=== PATIENT | male | born 1980 | race Caucasian/White ===

== ENCOUNTER 2018-03-21 11:40 | Inpatient (IN) | payer OTHER ==
[2018-03-21 13:04] VITALS: BMI 21.1
--- NOTE | 2018-03-21 18:04 | HP ---
CIWA Score - CIWA Score Nausea/Vomitin Muscle Tremors: 2 Anxiety: 3 Agitation: 4-Moderately Restless Paroxysmal Sweats: 3 Orientation: 1-Uncertain about Date Tacttile Disturbances: 1-Very Mild Itch/Numbness Auditory Disturbances: 0-None Visual Disturbances: 0-None Headache: 1-Very Mild CIWA-Ar Total Score: 17 Admission ROS BHS - HPI Chief Complaint: withdrawal symptoms Allergies/Adverse Reactions: Allergies Allergy/AdvReac Type Severity Reaction Status Date / Time No Known Allergies Allergy Verified 03/21/18 14:33 History of Present Illness: 37 yo male with hx nicotine, xanax, alcohol, cocaine dependence is here seeking detox for the first time. Reports hx of insomnia, denies any other medical problems. Last detox 8 months ago at [facility]. Denie suicidal / homicidal ideation. MMTP at [facility], methadone 100mg, last medicated today. Exam Limitations: No Limitations - Ebola screening Have you traveled outside of the country in the last 21 days: No Have you had contact with anyone from an Ebola affected area: No Have you been sick,other than usual withdrawal symptoms: No Do you have a fever: No - Review of Systems Constitutional: Chills, Changes in sleep, Unintentional Wgt. Loss (40 lbs) Respiratory: reports: No Symptoms reported Cardiac: reports: No Symptoms Reported GI: reports: Constipated, Nausea, Poor Appetite, Vomiting, Abdominal cramping : reports: No Symptoms Reported Musculoskeletal: reports: No Symptoms Reported Integumentary: reports: No Symptoms Reported Neuro: reports: Headache, Numbness (hands) Endocrine: reports: Increased Thirst Hematology: reports: No Symptoms Reported Psychiatric: reports: Orientated x3, Agitated Other Systems: Reviewed and Negative Patient History - Patient Medical History Hx Anemia: No Hx Asthma: No Hx Chronic Obstructive Pulmonary Disease (COPD): No Hx Cancer: No Hx Cardiac Disorders: No Hx Congestive Heart Failure: No Hx Hypertension: No Hx Hypercholesterolemia: No Hx Pacemaker: No HX Cerebrovascular Accident: No Hx Seizures: Yes Hx Dementia: No Hx Diabetes: No Hx Gastrointestinal Disorders: No Hx Liver Disease: No Hx Genitourinary Disorders: No Hx Sexually Transmitted Disorders: No Hx Renal Disease (ESRD): No Hx Thyroid Disease: No Hx Human Immunodeficiency Virus (HIV): No (last tested one year ) Hx Hepatitis C: No Hx Depression: Yes Hx Suicide Attempt: No Hx Bipolar Disorder: No Hx Schizophrenia: No - Patient Surgical History Past Surgical History: No Hx Neurologic Surgery: No Hx Cataract Extraction: No Hx Cardiac Surgery: No Hx Lung Surgery: No Hx Breast Surgery: No Hx Breast Biopsy: No Hx Abdominal Surgery: No Hx Appendectomy: No Hx Cholecystectomy: No Hx Genitourinary Surgery: No Hx Section: No Hx Orthopedic Surgery: No - PPD History Previous Implant?: No Implanted On Prior [facility] Admission?: No PPD to be Administered?: Yes - Smoking Cessation Smoking history: Current every day smoker Aproximately how many cigarettes per day: 20 Hx Chewing Tobacco Use: No Initiated information on smoking cessation: Yes 'Breaking Loose' booklet given: 03/21/18 - Substance & Tx. History Hx Alcohol Use: Yes Substance Use Type: Alcohol, Cocaine, Heroin, Opiates, Tranquilizers Hx Substance Use Treatment: Yes ([facility] 8 months ) - Substances Abused Alcohol Route: Oral Frequency: Daily Amount used: 1 pint of vodka, whisky 375 ml Age of first use: 15 Date of Last Use: 03/20/18 Cocaine Route: Injection Frequency: Daily Amount used: $50 Age of first use: 30 Date of Last Use: 03/20/18 xanax Route: Oral Frequency: Daily Amount used: 5 pills Age of first use: 32 Date of Last Use: 03/20/18 Family Disease History - Family Disease History Family History: Unable to Obtain Admission Physical Exam BHS - Vital Signs Vital Signs: Vital Signs - 24 hr 03/21/18 12:54 Temperature 97 F L Pulse Rate 67 Respiratory 20 Rate Blood Pressure 121/71 - Physical General Appearance: Yes: Appropriately Dressed, Mild Distress, Irritable, Sweating, Other (restless) HEENTM: Yes: EOMI, Hearing grossly Normal, Normal ENT Inspection, Normocephalic , Normal Voice, MERARI, Pharynx Normal, Tm's normal, Other (chelithis) Respiratory: Yes: Chest Non-Tender, Lungs Clear, Normal Breath Sounds, No Respiratory Distress, No Accessory Muscle Use Neck: Yes: Within Normal Limits Breast: Yes: Breast Exam Deferred Cardiology: Yes: Regular Rhythm, Regular Rate Abdominal: Yes: Normal Bowel Sounds, Non Tender, Flat, Soft Genitourinary: Yes: Within Normal Limits Back: Yes: Normal Inspection Musculoskeletal: Yes: full range of Motion, Gait Steady, Pelvis Stable Extremities: Yes: Normal Capillary Refill, Normal Inspection, Normal Range of Motion, Non-Tender Neurological: Yes: documentation analyst II-XII NML intact, Fully Oriented, Alert, Motor Strength 5/5, Depressed Affect Integumentary: Yes: Normal Color, Warm, Diaphoresis Lymphatic: Yes: Within Normal Limits - Diagnostic (1) Marijuana dependence Current Visit: Yes Status: Acute (2) Sedative, hypnotic or anxiolytic dependence with withdrawal, unspecified Current Visit: Yes Status: Acute (3) Alcohol dependence with uncomplicated withdrawal Current Visit: Yes Status: Acute (4) Cocaine dependence Current Visit: Yes Status: Acute (5) Opioid dependence on agonist therapy Current Visit: Yes Status: Acute Comment: on methadone 100 m at [facility], dose pending verification (6) Anxious mood Current Visit: Yes Status: Acute Cleared for Admission S - Detox or Rehab [facility] Level of Care: Medically Managed Detox Regimen/Protocol: Librium S Breath Alcohol Content Breath Alcohol Content: 0 Urine Drug Screen - Results Drug Screen Negative: No Urine Drug Screen Results: THC-Marijuana, LEO-Cocaine, OPI-Opiates, BZO- Benzodiazepines, MTD-Methadone
[2018-03-21] MEDS ORDERED: IBUPROFEN 400 MG TABLET (FP) PO PRN (18:09)
[2018-03-21] MEDS ORDERED: LOPERAMIDE HCL 2 MG CAPSULE PO PRN (18:09)
[2018-03-21] MEDS ORDERED: hydrOXYzine PAMOATE 50 MG CAPSULE (FP) PO PRN (18:09)
[2018-03-21] MEDS ORDERED: MENTHOL/PHENOL 1 EACH UD MM PRN (18:09)
[2018-03-21] MEDS ORDERED: ACETAMINOPHEN 325 MG TABLET (FP) PO PRN (18:09)
[2018-03-21] MEDS ORDERED: MAGNESIUM HYDROX 2400MG/30ML ORAL SUSPENSION 30 ML CUP PO PRN (18:09)
[2018-03-21] MEDS ORDERED: MAG HYDROX/AL HYDROX/SIMETH 30 ML UNIT-DOSE CUP PO PRN (18:09)
[2018-03-21] MEDS ORDERED: chlordiazePOXIDE HCL 25 MG CAPSULE PO PRN (18:09)
[2018-03-21] MEDS ORDERED: guaiFENesin/D-METHORPHAN HB 10 ML UNIT-DOSE CUPS PO PRN (18:09)
[2018-03-21] MEDS ORDERED: P-EPHED 60MG/TRIPROLIDI 2.5MG TABLET PO PRN (18:09)
[2018-03-21] MEDS ORDERED: MAGNESIUM CITRATE 300 ML BOTTLE PO PRN (18:09)
[2018-03-21] MEDS ORDERED: chlordiazePOXIDE HCL 25 MG CAPSULE PO ONE (18:30)
[2018-03-21] MEDS ORDERED: MELATONIN 5 MG TABLETS PO PRN (22:00)
[2018-03-21] MEDS: chlordiazePOXIDE HCL 25 MG CAPSULE PO SCH (22:11)
[2018-03-21] MEDS: THIAMINE HCL 100 MG TABLET (FP) PO SCH (22:11)
[2018-03-21] MEDS: NICOTINE POLACRILEX 2 MG GUM BC PRN (22:32)
[2018-03-22] MEDS: chlordiazePOXIDE HCL 25 MG CAPSULE PO SCH ×4 (07:27→22:11)
[2018-03-22] MEDS ORDERED: METHADONE HCL 10 MG TABLET PO ONE (09:12)
[2018-03-22] MEDS ORDERED: METHADONE 80 MG, METHADONE 20 MG PO ONE (09:45)
[2018-03-22] MEDS ORDERED: METHADONE HCL 40 MG DISPERSABLE TABLET ONE (09:47)
[2018-03-22] MEDS ORDERED: METHADONE HCL 10 MG TABLET ONE (09:47)
[2018-03-22 10:03] LABS: HEMATOCRIT 34.8 % (35.4-49); HEMOGLOBIN 11.7 GM/dL (11.7-16.9); MCH 29.2 pg (25.7-33.7); MCHC 33.7 g/dl (32.0-35.9); MEAN CELL VOLUME 86.7 fl (80-96); MEAN PLT VOLUME 10.1 fl (7.5-11.1); PLATELET COUNT 160 K/MM3 (134-434); RBC 4.02 M/mm3 (4.00-5.60); RDW 13.8 % (11.9-15.9); WHITE BLOOD COUNT 6.9 K/mm3 (4.0-10.0)
[2018-03-22 10:25] LABS: CHLORIDE 110 mmol/L (98-107); POTASSIUM 3.9 mmol/L (3.5-5.1); SODIUM 146 mmol/L (136-145)
[2018-03-22] MEDS: NICOTINE 21 MG/24 HOURS TOPICAL PATCH TD SCH (10:41)
[2018-03-22] MEDS: PRENATAL VITAMINS W/ FOLIC ACID TABLET (FP) PO SCH (10:41)
[2018-03-22 10:52] LABS: ALBUMIN 3.2 g/dl (3.4-5.0); ALK PHOS 60 U/L (45-117); ANION GAP 6 (8-16); BILIRUBIN,TOTAL 0.1 mg/dL (0.2-1.0); BLOOD UREA NITROGEN 13 mg/dL (7-18); CALCIUM 8.4 mg/dL (8.5-10.1); CO2 30 mmol/L (21-32); GLUCOSE,RANDOM 98 mg/dL (74-106); SGOT/AST 17 U/L (15-37); SGPT/ALT 24 U/L (12-78); TOT PROT 5.6 g/dl (6.4-8.2)
--- NOTE | 2018-03-22 11:23 | PN ---
S CIWA - CIWA Score Nausea/Vomitin-No Nausea/No Vomiting Muscle Tremors: 4-Moderate,w/Arms Extend Anxiety: 4-Mod. Anxious/Guarded Agitation: 4-Moderately Restless Paroxysmal Sweats: 1-Minimal Palms Moist Orientation: 0-Oriented Tacttile Disturbances: 0-None Auditory Disturbances: 0-None Visual Disturbances: 0-None Headache: 0-None Present CIWA-Ar Total Score: 13 BHS Progress Note (SOAP) Subjective: ANXIETY,SLIGHT TREMORS,DIARRHEA. Objective: 03/22/18 11:22 Vital Signs 03/22/18 03/22/18 03/22/18 03:30 07:39 09:39 Temperature 98.1 F 97.5 F L Pulse Rate 61 58 L Respiratory 18 19 18 Rate Blood Pressure 88/52 92/58 Laboratory Tests 03/22/18 03/22/18 07:30 07:30 WBC 6.9 RBC 4.02 Hgb 11.7 Hct 34.8 L MCV 86.7 MCH 29.2 MCHC 33.7 RDW 13.8 Plt Count 160 MPV 10.1 Sodium 146 H Potassium 3.9 Chloride 110 H Carbon Dioxide 30 Anion Gap 6 L BUN 13 Creatinine 1.0 Creat Clearance w eGFR > 60 Random Glucose 98 Calcium 8.4 L Total Bilirubin 0.1 L AST 17 ALT 24 Alkaline Phosphatase 60 Total Protein 5.6 L Albumin 3.2 L Assessment: 03/22/18 11:22 WITHDRAWAL SX Plan: CONTINUE DETOX INCREASE PO FLUIDS.
--- NOTE | 2018-03-22 16:33 | CONSULT ---
[facility] Psychiatric Consult - Data Date of interview: 03/22/18 Admission source: [facility] Identifying data: First admission to [facility] for this 37 y/o [place]-born male seeking detox treatment on for alcohol,cocaine,xanax and heroin dependence.Patient is single without chidren and domiciled.Mr Mccullough declines to provide additional demographic information. Substance Abuse History: Confirmed by patent in this interview.Smoking history: Current every day smoker. Aproximately how many cigarettes per day: 20. Hx Chewing Tobacco Use: No. Initiated information on smoking cessation: Yes. ' Breaking Loose' booklet given: 03/21/18. - Substance & Tx. History. Hx Alcohol Use: Yes. Substance Use Type: Alcohol, Cocaine, Heroin, Opiates, Tranquilizers. Hx Substance Use Treatment: Yes ([facility] 8 months ). - Substances Abused. Alcohol. Route: Oral. Frequency: Daily. Amount used: 1 pint of vodka, whisky 375 ml. Age of first use: 15. Date of Last Use: 03/20/18. Cocaine. Route: Injection. Frequency: Daily. Amount used: $50. Age of first use: 30. Date of Last Use: 03/20/18. xanax. Route: Oral. Frequency: Daily. Amount used: 5 pills. Age of first use: 32. Date of Last Use: 03/20/18 Medical History: Noted history of withdrawal-related seizures. Psychiatric History: Patient denies history of psychiatric hospitalizations or suicide attempts.Mr Mccullough is currently on methadone maintenance (100 mg/day ) at the [facility] MMTP program in [facility]. Physical/Sexual Abuse/Trauma History: No information. Additional Comment: Urine Drug Screen Results: THC-Marijuana, LEO-Cocaine, OPI- Opiates, BZO-Benzodiazepines, MTD-Methadone.Noted. Mental Status Exam - Mental Status Exam Alert and Oriented to: Time, Place, Person Cognitive Function: Good Patient Appearance: Well Groomed Mood: Hostile, Nervous, Withdrawn, Irritable Affect: Normal Range Patient Behavior: Fatigued, Uncooperative Speech Pattern: Clear (limited maori proficiency) Voice Loudness: Normal Thought Process: Goal Oriented Thought Disorder: Not Present Hallucinations: Denies Suicidal Ideation: Denies Homicidal Ideation: Denies Insight/Judgement: Poor Sleep: Well Appetite: Good Gait/Station: Normal Psychiatric Findings - Problem List (Rosie 1, 2,3) (1) Alcohol dependence with uncomplicated withdrawal Current Visit: Yes Status: Acute (2) Opioid dependence on agonist therapy Current Visit: Yes Status: Chronic Comment: on methadone 100 m at [facility], dose pending verification (3) Sedative, hypnotic or anxiolytic dependence with withdrawal, unspecified Current Visit: Yes Status: Acute (4) Cocaine dependence Current Visit: Yes Status: Acute Qualifiers: Substance use status: uncomplicated Qualified Code(s): F14.20 - Cocaine dependence, uncomplicated (5) Marijuana dependence Current Visit: Yes Status: Acute (6) Substance induced mood disorder Current Visit: Yes Status: Suspected - Initial Treatment Plan Initial Treatment Plan: Psychoeducation.Detoxification.Observation.
[2018-03-22 17:11] LABS: URINE APPEARANCE CLEAR; URINE BILIRUBIN NEGATIVE (<2.0 mg/dL); URINE BLOOD NEGATIVE (NEGATIVE); URINE COLOR LTYELLOW; URINE GLUCOSE (UA) NEGATIVE (NEGATIVE); URINE KETONE NEGATIVE (NEGATIVE); URINE LEUK ESTERASE NEGATIVE (NEGATIVE); URINE NITRITE NEGATIVE (NEGATIVE); URINE PROTEIN NEGATIVE (NEGATIVE); URINE UROBILINOGEN NEGATIVE mg/dL (0.2-1.0)
[2018-03-22] MEDS: THIAMINE HCL 100 MG TABLET (FP) PO SCH (22:11)
[2018-03-23] MEDS ORDERED: METHADONE HCL 40 MG DISPERSABLE TABLET ONE (04:12)
[2018-03-23] MEDS ORDERED: METHADONE HCL 10 MG TABLET ONE (04:12)
[2018-03-23] MEDS ORDERED: METHADONE HCL 10 MG TABLET PO SCH (06:00)
[2018-03-23] MEDS: chlordiazePOXIDE HCL 25 MG CAPSULE PO SCH ×3 (06:11→17:18)
[2018-03-23] MEDS: METHADONE 80 MG, METHADONE 20 MG PO SCH (06:11)
[2018-03-23] MEDS: PRENATAL VITAMINS W/ FOLIC ACID TABLET (FP) PO SCH (10:44)
[2018-03-23] MEDS: NICOTINE 21 MG/24 HOURS TOPICAL PATCH TD SCH (10:45)
--- NOTE | 2018-03-23 13:48 | PN ---
Psychiatric Progress Note Vital Signs: Vital Signs Period Temp Pulse Resp BP Sys/Pedersen Pulse Ox Last 24 Hr 96.8 F-98.9 F 61-73 16-18 105-113/59-74 Date of Session: 03/23/18 Chief Complaint:: " I cannot sleep at night." HPI: Uneventful hospitalization.Ongoing detoxification for alcohol,cocaine, xanax and heroin dependence.Reconsult is sought to address complaint of insomnia. ROS: Unremarkable. Current Medications: Active Medications Generic Name Dose Route Start Last Admin Trade Name Freq PRN Reason Stop Dose Admin Acetaminophen 650 mg 03/21/18 18:09 Tylenol - PO Q4H PRN FEVER Al Hydroxide/Mg Hydroxide 30 ml 03/21/18 18:09 Mylanta Oral Suspension - PO Q6H PRN DYSPEPSIA Chlordiazepoxide HCl 25 mg 03/22/18 23:00 03/23/18 10:45 Librium - PO 03/23/18 17:01 25 mg [id number] DI Administration Chlordiazepoxide HCl 15 mg 03/23/18 23:00 Librium - PO 03/24/18 17:01 [id number] DI Chlordiazepoxide HCl 25 mg 03/21/18 18:09 Librium - PO 03/24/18 18:08 Q4H PRN WITHDRAWAL(CONT SUBST) Chlordiazepoxide HCl 10 mg 03/24/18 23:00 Librium - PO 03/25/18 17:01 [id number] DI Eucalyptus/Menthol/Phenol/Sorbitol 1 each 03/21/18 18:09 Cepastat Lozenge - MM Q4H PRN SORE THROAT Guaifenesin 10 ml 03/21/18 18:09 Robitussin Dm - PO Q6H PRN COUGH Hydroxyzine Pamoate 50 mg 03/21/18 18:09 Vistaril - PO Q4H PRN AGITATION Ibuprofen 400 mg 03/21/18 18:09 Motrin - PO Q6H PRN PAIN LEVEL 4-6 Loperamide HCl 4 mg 03/21/18 18:09 Imodium - PO Q6H PRN DIARRHEA Magnesium Citrate 300 ml 03/21/18 18:09 Citroma - PO Q48H PRN CONSTIPATION Magnesium Hydroxide 30 ml 03/21/18 18:09 Milk Of Magnesia - PO DAILY PRN CONSTIPATION Melatonin 5 mg 03/21/18 22:00 03/22/18 22:11 Melatonin PO 5 mg HS PRN Administration INSOMNIA Methadone HCl 80 mg/ Methadone 100 mg 03/23/18 06:00 03/23/18 06:11 HCl 20 mg PO 100 mg DAILY@0600 DI Administration Nicotine 21 mg 03/22/18 10:00 03/23/18 10:45 Nicoderm Patch - TD 21 mg DAILY DI Administration Nicotine Polacrilex 2 mg 03/21/18 18:09 03/21/18 22:32 Nicorette Gum - BC 2 mg Q2H PRN Administration NICOTINE REPLACEMENT RX Multivit/Folic Acid/Iron 1 tab 03/22/18 10:00 03/23/18 10:44 Vitamins (Sjr) - PO 1 tab DAILY DI Administration Pseudoephedrine/Triprolidine 1 combo 03/21/18 18:09 Actifed - PO TID PRN NASAL CONGESTION Thiamine HCl 100 mg 03/21/18 22:00 03/22/18 22:11 Vitamin B1 - PO 100 mg HS DI Administration Medication(s) Change(s): Seroquel 50 mg po hs + ambien 5 mg po hs prn.Side effects/benefits of both drugs are discussed.Patient is made aware of the risk of metabolic syndrome,abnormal involuntary movements,cardiovascular adverse events,orthostasis,oversedation and parasomnias.Mr Mccullough agrees to this careplan. Current Side Effect: No Lab tests ordered: No Lab tests reviewed: Yes Provider note:: Met with patient.Mr Mccullough reports sleep latency and frequent awakenings during the night.He indicates that he " did well " on seroquel in the past.Patient requests " a low dose " of that drug at bedtime.Agrees to initiate treatment with 100 mg of seroquel.Side effects/ benefits discussed with the patient.Will follow response. Total face to face time:: 25 Mental Status Exam - Mental Status Exam Alert and Oriented to: Time, Place, Person Cognitive Function: Good Patient Appearance: Well Groomed Mood: Withdrawn, Anxious Affect: Normal Range Patient Behavior: Fatigued, Cooperative Speech Pattern: Clear Voice Loudness: Normal Thought Process: Goal Oriented Thought Disorder: Not Present Hallucinations: Denies Suicidal Ideation: Denies Homicidal Ideation: Denies Insight/Judgement: Poor Sleep: Poorly, Difficulty falling asleep Appetite: Good Muscle strength/Tone: Normal Gait/Station: Normal Psychiatric Treatment Plan - Problem List (1) Insomnia Comment: . (2) Alcohol dependence with uncomplicated withdrawal Comment: . (3) Opioid dependence on agonist therapy Comment: . (4) Sedative, hypnotic or anxiolytic dependence with withdrawal, unspecified Comment: . (5) Cocaine dependence Qualifiers: Substance use status: uncomplicated Qualified Code(s): F14.20 - Cocaine dependence, uncomplicated (6) Marijuana dependence Comment: . (7) Substance induced mood disorder Comment: .
--- NOTE | 2018-03-23 13:51 | PN ---
S CIWA - CIWA Score Nausea/Vomitin-No Nausea/No Vomiting Muscle Tremors: 4-Moderate,w/Arms Extend Anxiety: 3 Agitation: 2 Paroxysmal Sweats: No Perspiration Orientation: 0-Oriented Tacttile Disturbances: 2-Mild Itch/Numbness/Burn Auditory Disturbances: 2-Mild Harshness/Frighten Visual Disturbances: 0-None Headache: 3-Moderate CIWA-Ar Total Score: 16 BHS Progress Note (SOAP) Subjective: Stomach Cramping, Tremors, H/A, Body Aches, Fatigue. Objective: PATIENT A & O X 3, OBSERVED AMBULATING ON UNIT. NO ACUTE DISTRESS. 03/23/18 13:49 Vital Signs Temperature 96.9 F L 03/23/18 09:28 Pulse Rate 67 03/23/18 09:28 Respiratory Rate 18 03/23/18 09:28 Blood Pressure 113/61 03/23/18 09:28 O2 Sat by Pulse Oximetry (%) Laboratory Tests 03/22/18 03/22/18 03/22/18 07:30 07:30 07:30 WBC 6.9 RBC 4.02 Hgb 11.7 Hct 34.8 L MCV 86.7 MCH 29.2 MCHC 33.7 RDW 13.8 Plt Count 160 MPV 10.1 Sodium 146 H Potassium 3.9 Chloride 110 H Carbon Dioxide 30 Anion Gap 6 L BUN 13 Creatinine 1.0 Creat Clearance w eGFR > 60 Random Glucose 98 Calcium 8.4 L Total Bilirubin 0.1 L AST 17 ALT 24 Alkaline Phosphatase 60 Total Protein 5.6 L Albumin 3.2 L Urine Color Urine Appearance Urine pH Ur Specific [place] Urine Protein Urine Glucose (UA) Urine Ketones Urine Blood Urine Nitrite Urine Bilirubin Urine Urobilinogen Ur Leukocyte Esterase RPR Titer Nonreactive 03/22/18 15:50 WBC RBC Hgb Hct MCV MCH MCHC RDW Plt Count MPV Sodium Potassium Chloride Carbon Dioxide Anion Gap BUN Creatinine Creat Clearance w eGFR Random Glucose Calcium Total Bilirubin AST ALT Alkaline Phosphatase Total Protein Albumin Urine Color Ltyellow Urine Appearance Clear Urine pH 5.0 Ur Specific [place] 1.010 Urine Protein Negative Urine Glucose (UA) Negative Urine Ketones Negative Urine Blood Negative Urine Nitrite Negative Urine Bilirubin Negative Urine Urobilinogen Negative Ur Leukocyte Esterase Negative RPR Titer LABS NOTED. HIV AB RESULT PENDING. 03/23/18 13:50 Assessment: 03/23/18 13:49 WITHDRAWAL SYMPTOMS. Plan: CONTINUE DETOX.
[2018-03-23] MEDS: THIAMINE HCL 100 MG TABLET (FP) PO SCH (22:23)
[2018-03-23] MEDS: chlordiazePOXIDE 5 MG CAPSULE PO SCH (22:23)
[2018-03-23] MEDS: QUEtiapine FUMARATE 50 MG TABLET PO SCH (22:23)
[2018-03-23] MEDS: ZOLPIDEM TARTRATE 5 MG TABLET PO PRN (22:23)
[2018-03-24] MEDS ORDERED: METHADONE HCL 10 MG TABLET ONE (04:14)
[2018-03-24] MEDS ORDERED: METHADONE HCL 40 MG DISPERSABLE TABLET ONE (04:15)
[2018-03-24] MEDS: METHADONE 80 MG, METHADONE 20 MG PO SCH (06:06)
[2018-03-24] MEDS: chlordiazePOXIDE 5 MG CAPSULE PO SCH ×3 (06:07→17:09)
[2018-03-24] MEDS: NICOTINE 21 MG/24 HOURS TOPICAL PATCH TD SCH (10:29)
[2018-03-24] MEDS: PRENATAL VITAMINS W/ FOLIC ACID TABLET (FP) PO SCH (10:29)
--- NOTE | 2018-03-24 14:57 | PN ---
BHS Progress Note (SOAP) Subjective: Body Aches, Fatigue. Objective: PATIENT A & O X 3, OBSERVED AMBULATING ON UNIT. NO ACUTE DISTRESS. 03/24/18 14:56 Vital Signs Temperature 98 F 03/24/18 13:18 Pulse Rate 70 03/24/18 13:18 Respiratory Rate 16 03/24/18 13:18 Blood Pressure 102/59 03/24/18 13:18 O2 Sat by Pulse Oximetry (%) Laboratory Tests 03/22/18 03/22/18 03/22/18 07:30 07:30 07:30 WBC 6.9 RBC 4.02 Hgb 11.7 Hct 34.8 L MCV 86.7 MCH 29.2 MCHC 33.7 RDW 13.8 Plt Count 160 MPV 10.1 Sodium 146 H Potassium 3.9 Chloride 110 H Carbon Dioxide 30 Anion Gap 6 L BUN 13 Creatinine 1.0 Creat Clearance w eGFR > 60 Random Glucose 98 Calcium 8.4 L Total Bilirubin 0.1 L AST 17 ALT 24 Alkaline Phosphatase 60 Total Protein 5.6 L Albumin 3.2 L Urine Color Urine Appearance Urine pH Ur Specific [place] Urine Protein Urine Glucose (UA) Urine Ketones Urine Blood Urine Nitrite Urine Bilirubin Urine Urobilinogen Ur Leukocyte Esterase RPR Titer Nonreactive 03/22/18 15:50 WBC RBC Hgb Hct MCV MCH MCHC RDW Plt Count MPV Sodium Potassium Chloride Carbon Dioxide Anion Gap BUN Creatinine Creat Clearance w eGFR Random Glucose Calcium Total Bilirubin AST ALT Alkaline Phosphatase Total Protein Albumin Urine Color Ltyellow Urine Appearance Clear Urine pH 5.0 Ur Specific [place] 1.010 Urine Protein Negative Urine Glucose (UA) Negative Urine Ketones Negative Urine Blood Negative Urine Nitrite Negative Urine Bilirubin Negative Urine Urobilinogen Negative Ur Leukocyte Esterase Negative RPR Titer LABS NOTED. Assessment: 03/24/18 14:56 WITHDRAWAL SYMPTOMS. Plan: CONTINUE DETOX. PATIENT SCHEDULED FOR D/C TOMORROW.
[2018-03-24] MEDS: THIAMINE HCL 100 MG TABLET (FP) PO SCH (22:20)
[2018-03-24] MEDS: ZOLPIDEM TARTRATE 5 MG TABLET PO PRN (22:20)
[2018-03-24] MEDS: QUEtiapine FUMARATE 50 MG TABLET PO SCH (22:20)
[2018-03-24] MEDS: chlordiazePOXIDE HCL 10 MG CAPSULE PO SCH (22:20)
--- NOTE | 2018-03-24 22:48 | EKG ---
Test Reason : Blood Pressure : / mmHG Vent. Rate : 059 BPM Atrial Rate : 059 BPM P-R Int : 130 ms QRS Dur : 100 ms QT Int : 444 ms P-R-T Axes : 073 078 067 degrees QTc Int : 439 ms SINUS BRADYCARDIA OTHERWISE NORMAL ECG NO PREVIOUS ECGS AVAILABLE Confirmed by SANDRA SOARES MD ([id number]) on 03/24/2018 10:47:41 PM Referred By: Confirmed By:SANDRA SOARES MD
[2018-03-25] MEDS ORDERED: METHADONE HCL 40 MG DISPERSABLE TABLET ONE (03:23)
[2018-03-25] MEDS ORDERED: METHADONE HCL 10 MG TABLET ONE (03:23)
[2018-03-25] MEDS: METHADONE 80 MG, METHADONE 20 MG PO SCH (06:05)
[2018-03-25] MEDS: chlordiazePOXIDE HCL 10 MG CAPSULE PO SCH ×2 (06:05→11:39)
[2018-03-25] MEDS: NICOTINE POLACRILEX 2 MG GUM BC PRN (06:07)
[2018-03-25 06:39] VITALS: BP 98/65; PULSE 61; TEMP 97.4
[2018-03-25] MEDS: NICOTINE 21 MG/24 HOURS TOPICAL PATCH TD SCH (11:39)
[2018-03-25] MEDS: PRENATAL VITAMINS W/ FOLIC ACID TABLET (FP) PO SCH (11:39)
--- NOTE | 2018-03-25 15:08 | PN ---
BHS Progress Note (SOAP) Subjective: Offers no new complaints Objective: 03/25/18 15:07 A & O x 3 Ambulating steadily on unit In no acute distress Vital Signs Temperature 97.4 F L 03/25/18 06:39 Pulse Rate 61 03/25/18 06:39 Respiratory Rate 18 03/25/18 06:39 Blood Pressure 98/65 03/25/18 06:39 O2 Sat by Pulse Oximetry (%) Assessment: 03/25/18 15:08 detox successfully completed Plan: For d/c
--- NOTE | 2018-03-25 15:15 | DS ---
[facility] Detox Discharge Summary Admission Date: 03/21/18 Discharge Date: 03/25/18 - History Additional Comments: Pt A & O x 3 Ambulatory in no distress Pt to go for aftercare at [facility] Paperwork faxed to [facility] by Counselor - Physical Exam Results Vital Signs: Vital Signs Temperature 97.4 F L 03/25/18 06:39 Pulse Rate 61 03/25/18 06:39 Respiratory Rate 18 03/25/18 06:39 Blood Pressure 98/65 03/25/18 06:39 O2 Sat by Pulse Oximetry (%) Pertinent Admission Physical Exam Findings: withdrawal sx - Treatment Hospital Course: Detox Protocol Followed, Detoxed Safely, Responded well, Discharged Condition Good Patient has Accepted a Rehab Referral to: Sam - Medication Discharge Medications: Ambulatory Orders NK [No Known Home Medication] 03/21/18 - AMA Did Patient Leave Against Medical Advice: No
== END 2018-03-25 12:22 | disposition home or self-care (01) | DRG 773 ==
LOC: YASAS 11:40 → Y3N 16:31
PROVIDERS: ADMIT Internal Medicine; ATTEND Internal Medicine
PROC: HZ2ZZZZ Detoxification Services for Substance Abuse Treatment (ICD-10-PCS; principal; 2018-03-21)
DX: F11.20 Opioid dependence, uncomplicated (principal); F13.230 Sedative, hypnotic or anxiolytic dependence with withdrawal, uncomplicated; F10.230 Alcohol dependence with withdrawal, uncomplicated; F14.20 Cocaine dependence, uncomplicated; F12.20 Cannabis dependence, uncomplicated; F19.24 Other psychoactive substance dependence with psychoactive substance-induced mood disorder; F41.9 Anxiety disorder, unspecified; G47.00 Insomnia, unspecified
CPT/HCPCS: 36415; 71046-TC-FY; 80053; 81003; 85027; 86593; 87389; 93005; 93010